=== PATIENT | male | born 1985 | race Caucasian/White ===

== ENCOUNTER 2024-05-29 22:04 | Emergency (ER) | payer SELFPAY ==
--- NOTE | 2024-05-29 22:05 | XRR_ITS ---
PROCEDURE INFORMATION: Exam: XR Left Wrist Exam date and time: 05/29/2024 10:34 PM Age: 38 years old Clinical indication: Injury or trauma; Fall; Blunt trauma (contusions or hematomas); Patient HX: Patient tripped and fell landing on left wrist. Obvious deformity. C/O severe pain. TECHNIQUE: Imaging protocol: Radiologic exam of the left wrist. Views: 3 or more views. COMPARISON: No relevant prior studies available. FINDINGS: Bones/joints: There is a comminuted fracture of the distal radial metaphysis with dorsal displacement (approximately 2.5 cm), over riding (11 mm), and angulation (approximately 40 degrees). There is probably a fracture through the radial articular surface based on metaphyseal double density on lateral view although it is not well seen on frontal and oblique views. There is traumatic positive ulnar variance. Carpal bones travel with the distal radius. Carpal bones, ulna, and visualized metacarpals are intact. Soft tissues: Extensive regional soft tissue swelling as expected. XR/XR wrist LT min 3V* [id number] IMPRESSION: Comminuted displaced angulated and overriding fracture of the distal radial metaphysis with probable intra-articular extension. No additional fracture is evident involving the ulna or carpal bones.
[2024-05-29 22:16] VITALS: BP 110/65; PULSE 51; RESP 20; TEMP 36.6; O2SAT 100; BMI 23.7
[2024-05-29] MEDS: ondansetron 2 mg/ML SDV 2 mL 4 MG IVP (22:33)
[2024-05-29 22:35] VITALS: RESP 18; O2SAT 93
[2024-05-29] MEDS: HYDROmorphone 1 mg/mL INJ 1 mL 2 MG IVP (22:35)
[2024-05-29 22:41] VITALS: PULSE 61; RESP 18; O2SAT 91
[2024-05-29 22:55] VITALS: RESP 18; O2SAT 96
[2024-05-29] MEDS: HYDROmorphone 1 mg/mL INJ 1 mL IVP (22:55)
--- NOTE | 2024-05-29 22:57 | XRR_ITS ---
PROCEDURE INFORMATION: Exam: XR Left Wrist Exam date and time: 05/29/2024 11:00 PM Age: 38 years old Clinical indication: Injury or trauma; Fall; Fracture, traumatic injury; Displaced; Radius; Left; Proximal end; Patient HX: Check S/P reduction of radial fracture of wrist. ; Additional info: Post reduc TECHNIQUE: Imaging protocol: Radiologic exam of the left wrist. Views: 1 or 2 views. COMPARISON: CR (UP EX, ) 05/29/2024 10:34 PM FINDINGS: Bones/joints: There has been successful reduction of the complex distal radial fracture in near anatomic alignment and position. On this view, there are no findings intra-articular extension of the fracture. Intact carpal bones, ulna, and proximal metacarpals. Soft tissues: Normal. XR/XR wrist LT 2V [id number] IMPRESSION: Successful reduction comminuted distal radial fracture in near anatomic alignment and position. No evidence of intra-articular extension of the fracture.
[2024-05-29] MEDS: propofol 10 mg/mL SDV 20 mL 150 MG IV (23:03)
[2024-05-29 23:15] VITALS: BP 140/92; PULSE 70; RESP 11; O2SAT 96
[2024-05-29 23:20] VITALS: BP 129/82; PULSE 58; RESP 18; O2SAT 94
--- NOTE | 2024-05-29 23:23 | PC.NURSE ---
Wasted 80mg Propofol with Oc Maya RN in the pyxis and observed the medication being injected into the med destroyer bottle.
--- NOTE | 2024-05-30 00:43 | PC.NURSE ---
Pt sent home with 2tabs Hydrocodone 7.5/[address] Martinez orders.
[2024-05-30 00:44] VITALS: BP 136/69; PULSE 55; RESP 17; O2SAT 91
--- NOTE | 2024-05-30 01:49 | W.ED.EXTPRO ---
HPI - Extremity Problem General: Chief complaint: Extremity Injury, Upper Stated complaint: Left wrist injury Time Seen by Provider: 05/29/24 22:24 History of Present Illness: Healthy 38-year-old male who fell on outstretched hand, injuring his left wrist. There is a deformity. He is in quite a bit of pain. He does have feeling distally. No other injury. Associated symptoms: Deny chest pain or fever(s) Review of Systems Const: Denies: fever(s) Card: Denies: chest pain Resp: Denies: dyspnea GI: Denies: vomiting Musc: Denies: neck pain Neuro: Denies: headache(s) Physical Exam Const: GENERAL APPEARANCE: cooperative and ill appearing (And pain); not frail appearing HENMT: COMMON NORMALS: normocephalic and atraumatic HEAD & SCALP: normocephalic and atraumatic Neck/C-Spine: COMMON NORMALS: full ROM GENERAL: Yes trachea midline CERVICAL SPINE: Yes cervical ROM normal and No Cervical spine tenderness Chest: CHEST: Yes Symmetrical chest wall rise Resp: COMMON NORMALS: normal respiratory effort, No use of accessory muscles and clear to auscultation bilaterally AUSCULTATION: clear to auscultation bilaterally Cardio: COMMON NORMALS: regular rate and regular rhythm RATE: regular rate RHYTHM: regular rhythm Extremity: NARRATIVE EXTREMITY EXAM: Examination left upper extremity reveals deformity of the left wrist. There is significant tenderness over the distal radius. Sensation and capillary refill is intact. Neuro: DENNIS COMA SCALE: document GCS findings [place] coma scale eye opening: Spontaneous [place] coma scale verbal response: Orientated [place] coma scale motor response: Obey commands Dennis coma scale total score: 15 Procedures Orthopedic Fracture Reduction Fracture #1: Time Out Performed: Yes Side: left Fracture Reduction Location: radius Analgesia: procedural sedation Technique: direct manipulation, traction/counter-traction and traction splint Post Reduction X-rays Demonstrate: acceptable reduction Post-reduction neuro exam: intact Post-reduction vascular exam: intact Splint Applied: Yes Patient Tolerated Procedure: well and no complications Procedural Sedation Indication: fracture/dislocation reduction ASA Class: I Preparation: vehicle monitor technician applied, pulse oximeter, supplemental O2 applied, suction/airway equipment at bedside and IV secured IV Propofol dose (mg): 120 Patient Tolerated Procedure: well Complications: hypoventilation (Brief, no hypoxia noted.) Interventions: airway repositioned and assist by BVM (Briefly, no hypoxia noted.) Course Vital Signs: Vital signs: Vital Signs Temperature 97.9 F 05/29/24 22:16 Pulse Rate 55 L 05/30/24 00:44 Respiratory Rate 17 05/30/24 00:44 Blood Pressure 136/69 05/30/24 00:44 Pulse Oximetry 91 05/30/24 00:44 Oxygen Delivery Me thod Nasal Cannula 05/29/24 23:20 Oxygen Flow Rate 2 05/29/24 23:20 MDM - Extremity (Nontraumatic) Medical Decision Making Patient was in quite a bit of pain on arrival. This improved after IV Dilaudid. X-rays revealed comminuted distal radial fracture with displacement dorsally of the distal segment. Successfully reduced under conscious sedation. The patient had a brief period of hypoventilation during the conscious sedation, but never became hypoxic. [id number] was used to assist the patient's breathing for about 30 seconds. No intervention otherwise needed. He is placed in a sugar-tong splint. He will follow-up as an outpatient with orthopedics, as he will likely require internal fixation stabilization. Lab Data Radiology Impressions Wrist X-Ray 05/29/24 22:57 IMPRESSION: Successful reduction comminuted distal radial fracture in near anatomic alignment and position. No evidence of intra-articular extension of the fracture. All radiology interpretation(s) finalized by discharge Discharge Plan Discharge Patient Disposition: Home Clinical Impression: Fracture of wrist Condition: Stable Prescriptions: New Percocet 7.5-325 mg tablet 1 tab PO Q6H PRN (Reason: pain) Qty: 10 0RF Discharge Orders: Discharge ED (Routine); Ordered 05/30/24 Ordered By: Kaden Martinez Referrals: Joshua Poon DO [Physician] - 1-3 days Patient Instructions: Wrist Fracture in Adults (ED), Closed Reduction (ED), Opioid Safety, Pain Management Activity Restrictions/Additional Instructions: Stay in splint until seen by orthopedics. Call Friday for an appointment. Ice through your splint for pain and swelling. You may take pain medication as directed as well. Return for any problems. Coding Level of Care Code ED Steam Drier Tender for Terell Kirk
--- NOTE | 2024-06-01 07:43 | DCPLANNER ---
Message sent to Ortho for follow up on wrist fracture.
== END 2024-05-30 00:38 | disposition home or self-care (01) ==
PROVIDERS: Emergency Provider Emergency Medicine
DX: S52.502A Unspecified fracture of the lower end of left radius, initial encounter for closed fracture (principal); W19.XXXA Unspecified fall, initial encounter
CPT/HCPCS: 25605; 73100; 73110; 96374; 96375; 96376; 99285; J1170; J2405; J2704

== ENCOUNTER → 2024-06-01 14:19 | Outpatient (BNVA) | payer SELFPAY | PROVIDERS: Referring Provider Emergency Medicine; Visit Provider Physician Assistant | DX: S62.101A Fracture of unspecified carpal bone, right wrist, initial encounter for closed fracture; W19.XXXA Unspecified fall, initial encounter | CPT/HCPCS: 73110 ==